=== PATIENT | male | born 1960 | race African-American/Black ===

== ENCOUNTER 2018-01-11 17:07 | Emergency (ER) | payer MEDICAID, OTHER, SELFPAY | END 2018-01-11 17:53 | disposition home or self-care (01) | LOC: MADERS 17:07 → EDBD 17:07 → MADERS 17:53 | DX: K62.5 Hemorrhage of anus and rectum (principal) | CPT/HCPCS: 99283 ==

== ENCOUNTER 2020-01-01 14:04 | Emergency (ER) | payer MEDICARE, OTHER ==
[~2020-01-01 14:04] MED LIST: Iopamidol 370 76% 100 ML VIAL ONE; Sodium Chloride 0.9% 1,000 ML BAG ONE
[2020-01-01] MEDS ORDERED: Ondansetron PF 4 MG/2 ML Vial ONE (14:45)
[2020-01-01 14:58] LABS: Hemoglobin 15.7 g/dL (14.0-18.0); Mean Corpuscular HGB CONC 30.7 g/dL (32.0-36.0); Mean Corpuscular Volume 88.1 fL (78.0-98.0); Mean Platelet Volume 8.4 fL (7.4-10.4); Platelet Count 246 thou/uL (130-400); RBC Distribution Width 12.8 % (11.5-14.5); Red Blood Cell (RBC) Count 5.81 mill/uL (4.70-6.10); White Blood Cell (WBC) Count 7.6 thou/uL (4.8-10.8)
[2020-01-01 15:12] LABS: ALT (SGPT) 18 U/L (8-55); AST (SGOT) 17 U/L (5-34); Albumin 4.4 g/dL (3.5-5.0); Alkaline Phosphatase 52 U/L (40-110); Anion Gap 16 mmol/L (10-20); BUN (Urea Nitrogen) 13 mg/dL (8.4-25.7); Bilirubin, Total 0.6 mg/dL (0.2-1.2); Calc. Creatinine Clearance 0 mL/min (70-130); Carbon Dioxide 19 mmol/L (22-29); Chloride 110 mmol/L (98-107); Estimated GFR-MDRD 68; Globulin 4.1 g/dL (2.4-3.5); Glucose 148 mg/dL (70-105); Lipase 10 U/L (8-78); Potassium 3.9 mmol/L (3.5-5.1); Protein, Total 8.5 g/dL (6.0-8.3); Sodium 141 mmol/L (136-145)
[2020-01-01 15:14] LABS: Band 2 % (5-11); Lymphocytes 6 % (21-51); MDiff Complete? YES; Monocytes 4 % (0-10); Neutrophil 88 % (42-75); Platelet Morphology Comment Appears Adequate; RBC Morphology Normal
--- NOTE | 2020-01-01 15:45 | CT ---
CT ABDOMEN AND PELVIS WITH CONTRAST: HISTORY: Abdominal pain, nausea, vomiting and distention. History of small bowel obstruction. COMPARISON: 11/25/2016 04/03/2015 FINDINGS: The lung bases show bibasilar atelectatic change. There are hypodensities within the right lobe of the liver. These are fairly stable in appearance and have previously been felt to represent hemangiomas. One does show an area of some peripheral enhance ment. The spleen, pancreas and gallbladder regions appear unremarkable. The right and left adrenal glands and the right and left kidneys are normal in size. There is no sign ificant periaortic or mesenteric adenopathy. Once again, there is a very distended sigmoid colon, which extends up into the right upper quadrant. There is no pneumatosis or wall thickening associated with this. It is associated with a moderate christi unt of stool within the more distal sigmoid colon, extending to the rectum. The afferent and efferent limbs of this dilated portion of the colon are in apposition but there is no volvulus seen. The freya harjinder of the colon is decompressed. The stomach shows some fairly marked gaseous distention. There is no small bowel obstruction. No free fluid. No pelvic lymphadenopathy or mass. Postoperative changes and deformity to the left hip are again demonstrated. IMPRESSION: 1. Markedly distended sigmoid colon which is displaced into the right upper quadrant of the abdomen. These changes are similar to that which has been seen on previous examination. The distal sigmoid col on has a moderate amount of stool, which may be contributing to this obstruction, but this does not a ppear to represent a volvulus. The abnormal position may represent some type of internal hernia relat ed to omental or mesenteric defect, given the abnormal position of the sigmoid colon, which is a long standing finding in this patient. 2. There is moderate gaseous distention of the stomach on today's study. 3. Hypodensities within the liver, which have been felt to represent hemangiomas. They are stable. 4. Bibasilar atelectasis. POS: MEGGAN
[2020-01-01 16:45] LABS: Bilirubin Negative (Negative); Blood, Urine Negative (Negative); Clarity Clear (Clear); Glucose, Urine (Dipstick) Negative (Negative); Leukocyte Negative (Negative); Nitrite Negative (Negative); Protein, Urine (Dipstick) 100 mg/dL (Neg-Trace)
[2020-01-01 17:10] LABS: Bacteria/HPF Rare-Few HPF (None Seen); Mucous/LPF None Seen LPF (<2+); RBC/HPF 0-3 HPF (0-3); Squamous Epithelial 0-3 HPF (0-3); WBC/HPF 0-3 HPF (0-3)
[2020-01-01] MEDS ORDERED: Fleet Enema 133 ML BOT ONE (18:34)
== END 2020-01-01 19:48 | disposition home or self-care (01) ==
LOC: MADERS 14:04
DX: K59.00 Constipation, unspecified (principal); R11.2 Nausea with vomiting, unspecified
CPT/HCPCS: 74177; 80053; 81003; 81015; 83605; 83690; 84443; 85025; 96361; 96374; J2405; J7050; Q9967

== ENCOUNTER 2021-05-25 14:12 | Emergency (ER) | payer MEDICARE, MEDICAID ==
[~2021-05-25 14:12] MED LIST changes: -Iopamidol 370 76% 100 ML VIAL ONE
[2021-05-25 14:44] LABS: #Lymphocytes 0.6 thou/uL (1.20-3.40); #Monocytes 0.3 thou/uL (0.11-0.59); #Neutrophils 3.5 thou/uL (1.40-6.50); %Basophils 0.4 % (0.0-1.0); %Eosinophils 0.1 % (0.0-10.0); %Lymphocytes 13.8 % (21.0-51.0); %Monocytes 7.6 % (0.0-10.0); %Neutrophils 78.2 % (42.0-75.0); Hemoglobin 13.9 g/dL (14.0-18.0); Mean Corpuscular HGB CONC 31.8 g/dL (32.0-36.0); Mean Corpuscular Hemoglobin 28.4 pg (27.0-31.0); Mean Corpuscular Volume 89.5 fL (78.0-98.0); Mean Platelet Volume 9.6 fL (7.4-10.4); Platelet Count 175 thou/uL (130-400); RBC Distribution Width 12.6 % (11.5-14.5); Red Blood Cell (RBC) Count 4.89 mill/uL (4.70-6.10); White Blood Cell (WBC) Count 4.5 thou/uL (4.8-10.8)
[2021-05-25 14:59] LABS: ALT (SGPT) 30 U/L (8-55); AST (SGOT) 41 U/L (5-34); Albumin 3.9 g/dL (3.5-5.0); Alkaline Phosphatase 54 U/L (40-110); Anion Gap 17 mmol/L (10-20); BUN (Urea Nitrogen) 15 mg/dL (8.4-25.7); Bilirubin, Total 0.4 mg/dL (0.2-1.2); Calc. Creatinine Clearance 0 mL/min (70-130); Calcium 8.4 mg/dL (7.8-10.44); Carbon Dioxide 18 mmol/L (22-29); Chloride 109 mmol/L (98-107); Globulin 4.3 g/dL (2.4-3.5); Glucose 120 mg/dL (70-105); Potassium 3.6 mmol/L (3.5-5.1); Protein, Total 8.2 g/dL (6.0-8.3); Sodium 140 mmol/L (136-145)
== END 2021-05-25 18:10 | disposition home or self-care (01) ==
LOC: MADERS 14:12
DX: R07.89 Other chest pain (principal)
CPT/HCPCS: 36415; 71045; 71250; 80053; 83880; 84484; 85025; 93005; J7050

== ENCOUNTER 2022-03-12 17:58 | Emergency (ER) | payer MEDICARE, MEDICAID ==
[~2022-03-12 17:58] MED LIST changes: +Iopamidol 370 76% 100 ML VIAL ONE; -Sodium Chloride 0.9% 1,000 ML BAG ONE
[2022-03-12] MEDS ORDERED: Sodium Chloride 0.9% 1,000 ML ONE (19:10)
[2022-03-12] MEDS ORDERED: Ondansetron PF 4 MG/2 ML Vial ONE (19:10)
[2022-03-12 19:22] LABS: Band 1 % (5-11); Lymphocytes 9 % (21-51); MDiff Complete? YES; Mean Corpuscular HGB CONC 34.1 g/dL (32.0-36.0); Mean Corpuscular Hemoglobin 30.5 pg (27.0-31.0); Mean Corpuscular Volume 89.4 fL (78.0-98.0); Monocytes 5 % (0-10); Neutrophil 82 % (42-75); Nucleated RBC 1 % (0); Platelet Count 253 thou/uL (130-400); Platelet Morphology Comment Appears Adequate; RBC Distribution Width 13.3 % (11.5-14.5); RBC Morphology Normal; Reactive Lymphocytes 3 % (0-10); Red Blood Cell (RBC) Count 5.58 mill/uL (4.70-6.10); White Blood Cell (WBC) Count 7.6 thou/uL (4.8-10.8)
[2022-03-12 19:23] LABS: ALT (SGPT) Less than 7 U/L (8-55); AST (SGOT) 9 U/L (5-34); Alkaline Phosphatase 55 U/L (40-110); Anion Gap 19 mmol/L (10-20); BUN (Urea Nitrogen) 8 mg/dL (8.4-25.7); Bilirubin, Total 0.7 mg/dL (0.2-1.2); Calc. Creatinine Clearance 0 mL/min (70-130); Calcium 8.8 mg/dL (7.8-10.44); Carbon Dioxide 20 mmol/L (22-29); Chloride 104 mmol/L (98-107); Glucose 137 mg/dL (70-105); Potassium 3.7 mmol/L (3.5-5.1); Sodium 139 mmol/L (136-145)
[2022-03-12 19:43] LABS: Lipase Less than 4 U/L (8-78)
[2022-03-12 20:22] LABS: Bilirubin Small (Negative); Blood, Urine Negative (Negative); Clarity Clear (Clear); Glucose, Urine (Dipstick) Negative (Negative); Ketone, Urine Negative (Negative); Leukocyte Negative (Negative); Nitrite Negative (Negative); Protein, Urine (Dipstick) 100 mg/dL (Neg-Trace); Specific Gravity, Urine 1.025 (1.005-1.030)
[2022-03-12 20:30] LABS: Bacteria/HPF None Seen HPF (None Seen); Mucous/LPF 1+ LPF (<2+); RBC/HPF None Seen HPF (0-3); Squamous Epithelial None Seen HPF (0-3); WBC/HPF None Seen HPF (0-3)
[2022-03-12] MEDS ORDERED: Lorazepam 2 MG/ML VIAL ONE (20:57)
== END 2022-03-12 22:29 | disposition short-term general hospital (02) ==
LOC: MADERS 17:58
DX: K56.609 Unspecified intestinal obstruction, unspecified as to partial versus complete obstruction (principal)
CPT/HCPCS: 36415; 74018; 74177; 80053; 81003; 81015; 83605; 83690; 85025; 96374; 96375; J2060; J2405; J7050; Q9967

== ENCOUNTER 2025-01-04 10:16 | Emergency (ER) | payer MEDICARE, MEDICAID ==
[2025-01-04] MEDS ORDERED: Morphine 4 MG/ML VIAL ONE (10:41)
[2025-01-04] MEDS ORDERED: Ondansetron PF 4 MG/2 ML Vial ONE (10:41)
[2025-01-04] MEDS ORDERED: Sodium Chloride 0.9% 1,000 ML ONE (10:41)
[2025-01-04 11:21] LABS: Band 5 % (5-11); Hematocrit 51.3 % (42.0-52.0); Hemoglobin 16.2 g/dL (14.0-18.0); Lymphocytes 5 % (21-51); MDiff Complete? YES; Mean Corpuscular HGB CONC 31.7 g/dL (32.0-36.0); Mean Corpuscular Hemoglobin 27.6 pg (27.0-31.0); Mean Corpuscular Volume 87.2 fl (78.0-98.0); Mean Platelet Volume 8.6 fL (7.4-10.4); Monocytes 3 % (0-10); Neutrophil 86 % (42-75); Platelet Adequacy Comment Appears Adequate; Platelet Count 241 10x3/uL (130-400); RBC Distribution Width 12.9 % (11.5-14.5); Red Blood Cell (RBC) Count 5.89 mill/uL (4.70-6.10); White Blood Cell (WBC) Count 5.6 10x3/uL (4.8-10.8)
[2025-01-04 11:22] LABS: ALT (SGPT) 8 U/L (Less than 45); AST (SGOT) 14 U/L (11-34); Albumin 4.3 g/dL (3.1-4.5); Alkaline Phosphatase 61 U/L (40-110); Anion Gap 17 mmol/L (10-20); BUN (Urea Nitrogen) 10 mg/dL (8.4-25.7); Bilirubin, Total 0.7 mg/dL (0.3-1.2); Calc. Creatinine Clearance 0 mL/min (70-130); Calcium 9.4 mg/dL (7.8-10.44); Carbon Dioxide 19 mmol/L (23-31); Chloride 106 mmol/L (98-107); Estimated GFR 77; Globulin 4.5 g/dL (2.4-3.5); Glucose 143 mg/dL (80-115); Lipase 4 U/L (8-78); Magnesium 2.3 mg/dL (1.6-2.6); Potassium 3.5 mmol/L (3.5-5.1); Protein, Total 8.8 g/dL (5.8-8.1); Sodium 138 mmol/L (136-145); Troponin I Less than 0.010 ng/mL (< 0.028)
[2025-01-04] MEDS ORDERED: Magnesium 2 GM/50 ML BAG (IN WATER) ONE (11:28)
[2025-01-04 16:14] LABS: Bilirubin Negative (Negative); Blood, Urine Negative (Negative); Glucose, Urine (Dipstick) Negative (Negative); Ketone, Urine Negative (Negative); Leukocyte Negative (Negative); Nitrite Negative (Negative); Protein, Urine (Dipstick) 30 mg/dL (Neg-Trace); Specific Gravity, Urine 1.015 (1.005-1.030)
[2025-01-04 16:15] LABS: Bacteria/HPF Rare-Few HPF (None Seen); CAUTI Indications for Culture Dysuria,urgency,freq; Clarity Hazy (Clear); RBC/HPF 0-3 HPF (0-3); Squamous Epithelial 0-3 HPF (0-3); Urine Culture Reflex No No; WBC/HPF 0-3 HPF (0-3)
== END 2025-01-04 13:53 | disposition short-term general hospital (02) ==
LOC: MADERS 10:16
DX: K56.609 Unspecified intestinal obstruction, unspecified as to partial versus complete obstruction (principal); R62.50 Unspecified lack of expected normal physiological development in childhood; I45.81 Long QT syndrome
CPT/HCPCS: 36415; 71045; 74177; 80053; 81001; 83605; 83690; 83735; 83880; 84484; 85025; 93005; 96361; 96365; 96366; 96375; J2270; J2405; J3475; J7030; Q9967

== ENCOUNTER 2025-01-15 07:20 | Emergency (ER) | payer MEDICARE, MEDICAID ==
[2025-01-15] MEDS ORDERED: Ondansetron PF 4 MG/2 ML Vial ONE (07:56)
[2025-01-15] MEDS ORDERED: Sodium Chloride 0.9% 1,000 ML ONE (07:56)
[2025-01-15 08:02] LABS: Hematocrit 51.3 % (42.0-52.0); Hemoglobin 16.3 g/dL (14.0-18.0); Mean Corpuscular HGB CONC 31.8 g/dL (32.0-36.0); Mean Corpuscular Hemoglobin 27.9 pg (27.0-31.0); Mean Corpuscular Volume 87.7 fl (78.0-98.0); Mean Platelet Volume 7.7 fL (7.4-10.4); Platelet Count 362 10x3/uL (130-400); RBC Distribution Width 12.4 % (11.5-14.5); Red Blood Cell (RBC) Count 5.85 mill/uL (4.70-6.10); White Blood Cell (WBC) Count 11.7 10x3/uL (4.8-10.8)
[2025-01-15 08:15] LABS: ALT (SGPT) 17 U/L (Less than 45); AST (SGOT) 16 U/L (11-34); Albumin 3.9 g/dL (3.1-4.5); Alkaline Phosphatase 62 U/L (40-110); Anion Gap 21 mmol/L (10-20); BUN (Urea Nitrogen) 9 mg/dL (8.4-25.7); Bilirubin, Total 0.7 mg/dL (0.3-1.2); Calc. Creatinine Clearance 0 mL/min (70-130); Calcium 9.1 mg/dL (7.8-10.44); Carbon Dioxide 19 mmol/L (23-31); Chloride 101 mmol/L (98-107); Estimated GFR 74; Globulin 4.2 g/dL (2.4-3.5); Glucose 165 mg/dL (80-115); Lipase 6 U/L (8-78); Potassium 3.3 mmol/L (3.5-5.1); Protein, Total 8.1 g/dL (5.8-8.1); Sodium 138 mmol/L (136-145)
[2025-01-15] MEDS ORDERED: Iopamidol 370 76% 100 ML VIAL ONE (09:00)
[2025-01-15 09:09] LABS: Band 1 % (5-11); Lymphocytes 7 % (21-51); MDiff Complete? YES; Monocytes 6 % (0-10); Neutrophil 85 % (42-75); Platelet Adequacy Comment Appears Adequate
== END 2025-01-15 13:28 | disposition short-term general hospital (02) ==
LOC: MADERS 07:20
DX: K63.89 Other specified diseases of intestine (principal); R11.2 Nausea with vomiting, unspecified; R10.84 Generalized abdominal pain; R93.2 Abnormal findings on diagnostic imaging of liver and biliary tract
CPT/HCPCS: 74177; 80053; 83690; 85025; 96361; 96374; J2405; J7030; Q9967